=== PATIENT | male | born 1950 | race Caucasian/White ===

== ENCOUNTER 2022-04-15 12:20 | Emergency (ER) | payer MEDICARE, OTHER ==
[2022-04-15 13:52] LABS: BASOPHILS % (AUTO) 0.3 %; HCT - HEMATOCRIT 38.8 % (42.0-52.0); HGB - HEMOGLOBIN 12.5 g/dL (14.0-18.0); LYMPHOCYTES % (AUTO) 2.2 %; MEAN CORPUSCULAR HEMOGLOBIN 30.8 pg (27.0-31.0); MEAN CORPUSCULAR HGB CONC 32.2 g/dL (32.0-36.0); MEAN CORPUSCULAR VOLUME 95.6 fL (80.0-94.0); MEAN PLATELET VOLUME 10.4 fL (7.4-11.4); MONOCYTES % (AUTO) 5.9 %; NEUTROPHILS % (AUTO) 90.3 %; PLT - PLATELET COUNT 235 10^3/uL (130-450); RED BLOOD COUNT 4.06 10^6/uL (4.70-6.10); RED CELL DISTRIBUTION WIDTH 13.2 % (12.0-15.0); WHITE BLOOD COUNT 21.3 x10^3/uL (4.8-10.8)
[2022-04-15 13:54] LABS: ABNORMAL LYMPHS % (MANUAL) 0 %
[2022-04-15 14:03] LABS: ALBUMIN 3.5 g/dL (3.2-5.5); CALCIUM 9.7 mg/dL (8.5-10.3); CREATININE 2.9 mg/dL (0.6-1.2); POTASSIUM 4.6 mmol/L (3.5-5.0); TOTAL PROTEIN 6.9 g/dL (6.7-8.2)
[2022-04-15 14:11] LABS: BAND NEUTROPHILS % (MANUAL) 18 %; DIFFERENTIAL COMMENT MANUAL DIFFERENTIAL; EOSINOPHILS # (MANUAL) 0.2 10^3/uL (0-0.7); LYMPHOCYTES # (MANUAL) 1.3 10^3/uL (1.5-3.5); LYMPHOCYTES % (MANUAL) 6 %; MONOCYTES # (MANUAL) 1.7 10^3/uL (0.0-1.0); NEUTROPHILS # (MANUAL) 18.1 10^3/uL (1.5-6.6); PLATELET ESTIMATE, MANUAL NORMAL (130-450,000) (NORMAL); PLATELET MORPHOLOGY NORMAL APPEARANCE (NORMAL); RBC MORPHOLOGY (MULTIPLE) NORMAL APPEARANCE (NORMAL)
--- NOTE | 2022-04-15 14:14 | ED Physician Documentation ---
PD HPI DYSPNEA - Stated complaint Stated Complaint: LEFT ARM/FINGER INF/PX - Chief complaint Chief Complaint: Ext Problem - History obtained from History obtained from: Patient PD PAST MEDICAL HISTORY - Allergies Allergies/Adverse Reactions: Allergies Allergy/AdvReac Type Severity Reaction Status Date / Time No Known Drug Allergies Allergy Verified 04/15/22 12:56 Results - Vitals Vitals: Vital Signs - 24 hr 04/15/22 12:47 Temperature 36.7 C Heart Rate 58 L Respiratory 16 Rate Blood Pressure 98/72 O2 Saturation 91 L Oxygen O2 Source Room air - Labs Labs: Laboratory Tests 04/15/22 04/15/22 13:44 13:44 WBC 21.3 H RBC 4.06 L Hgb 12.5 L Hct 38.8 L MCV 95.6 H MCH 30.8 MCHC 32.2 RDW 13.2 Plt Count 235 MPV 10.4 Neut # (Auto) Not Reportable Lymph # (Auto) Not Reportable [place] # (Auto) Not Reportable Eos # (Auto) Not Reportable Baso # (Auto) Not Reportable Absolute Nucleated RBC Not Reportable Total Counted 100 Band Neuts % (Manual) 18 H Abnorm Lymph % (Manual) 0 Nucleated RBC % Not Reportable Neutrophils # (Manual) 18.1 H Lymphocytes # (Manual) 1.3 L Monocytes # (Manual) 1.7 H Eosinophils # (Manual) 0.2 Basophils # (Manual) 0.0 Differential Comment MANUAL DIFFERENTIAL Platelet Estimate NORMAL (130-450,000) Platelet Morphology NORMAL APPEARANCE RBC Morph Micro Appear NORMAL APPEARANCE Sodium 135 Potassium 4.6 Chloride 101 Carbon Dioxide 18 L Anion Gap 16.0 H BUN 40 H Creatinine 2.9 H Estimated GFR (MDRD) 22 L Glucose 147 H Calcium 9.7 Total Bilirubin 1.0 AST 37 ALT 22 Alkaline Phosphatase 56 Total Protein 6.9 Albumin 3.5 Globulin 3.4 Albumin/Globulin Ratio 1.0 Lipase 34
[2022-04-15] MEDS ORDERED: SODIUM CHLORIDE 0.9% 2,422.17 ML IV STA (14:18)
--- NOTE | 2022-04-15 14:19 | XRAY Report ---
PROCEDURE: Chest 1 View X-Ray INDICATIONS: dyspnea TECHNIQUE: One view of the chest was acquired. COMPARISON: None. FINDINGS: Surgical changes and devices: None. Lungs and pleura: No pleural effusions or pneumothorax. Lungs are clear. Mediastinum: Mediastinal contours appear normal. Heart size is normal. Bones and chest wall: No suspicious bony lesions. Overlying soft tissues appear unremarkable. IMPRESSION: No acute cardiopulmonary pathology. Reviewed by: Chino Crain MD on 04/15/2022 2:18 PM PST Approved by: Chino Crain MD on 04/15/2022 2:18 PM PST Station ID: [id number]
[2022-04-15] MEDS ORDERED: ceFAZolin 2 GM in SODIUM CHLORIDE 0.9% 100ML 100 ML IV STA (14:21)
--- NOTE | 2022-04-15 14:24 | ED Physician Documentation ---
History of Present Illness - Stated complaint Stated Complaint: LEFT ARM/FINGER INF/PX - Chief complaint Chief Complaint: Ext Problem - Additonal information Additional information: 71-year-old male presents to The emergency department for evaluation of concerns of infection in the left arm. Reports that 48 hours ago he noticed a redness in his left upper inner arm. Over the last 24 hours is gotten progressively more erythematous and swollen now his left finger hurts. Now a centralized area has become ecchymotic. He is also been having some fevers, chills and shortness of air. Reports extensive n/v/d last night. none today Past medical history is most significant for hypertension and atrial fibrillation. He is anticoagulated on Eliquis. He denies any history of coronary artery disease or strokes. This gentleman is new to [facility] recently moving here from [place] (Moved this weekend) Past medical history: Hypertension, atrial fibrillation Medications: Lisinopril 10 mg daily, atorvastatin 20 mg daily, Eliquis 5 mg twice daily, metoprolol 100 mg daily. Review of Systems Constitutional: reports: Fever, Chills, Myalgias Throat: reports: Reviewed and negative Cardiac: reports: Reviewed and negative Respiratory: reports: Dyspnea. denies: Cough GI: reports: Nausea, Vomiting, Diarrhea Skin: reports: Lesions Musculoskeletal: denies: Neck pain, Back pain Neurologic: reports: Reviewed and negative PD PAST MEDICAL HISTORY - Allergies Allergies/Adverse Reactions: Allergies Allergy/AdvReac Type Severity Reaction Status Date / Time No Known Drug Allergies Allergy Verified 04/15/22 12:56 PD ED PE NORMAL - General General: Alert and oriented X 3, No acute distress - Neck Neck: Supple, no meningeal sign, No adenopathy - Cardiac Cardiac: No murmur, Other (Faint 1+ pulses in all 4 extremities. Sluggish cap refill). No: RRR (Rate controlled irregularly irregular) - Respiratory Respiratory: No respiratory distress, Clear bilaterally - Abdomen Abdomen: Normal bowel sounds, Soft - Back Back: No CVA TTP, No spinal TTP - Derm Derm: Normal color, No rash - Extremities Extremities: No deformity, Normal ROM s pain. No: No tenderness to palpate (Left upper extremity with an area of induration and ecchymosis inner arm with surrounding erythema measuring approximately 5 x 8 cm.) - Neuro Neuro: Alert and oriented X 3, head of conservation 2-12 intact Eye Opening: Spontaneous Motor: Obeys Commands Verbal: Oriented GCS Score: 15 Results - Vitals Vitals: Vital Signs - 24 hr 04/15/22 04/15/22 04/15/22 12:47 16:00 16:37 Temperature 36.7 C Heart Rate 58 L 90 84 Respiratory 16 20 21 Rate Blood Pressure 98/72 80/64 L 77/65 L O2 Saturation 91 L 97 99 04/15/22 04/15/22 17:19 18:00 Temperature Heart Rate 63 89 Respiratory 20 18 Rate Blood Pressure 86/64 L 84/69 L O2 Saturation 96 97 Oxygen O2 Source Room air - EKG (time done) 1427 Rate: Rate (enter#) (95) Rhythm: Atrial fibrillation Roy: Other QRS: Poor R wave progression, Low voltage Ischemia: Q waves (inferior and anterior leads) Compare to prior EKG: Old EKG unavailable Computer interpretation: Agree with computer - Labs Labs: Laboratory Tests 04/15/22 04/15/22 04/15/22 13:44 13:44 13:44 WBC 21.3 H RBC 4.06 L Hgb 12.5 L Hct 38.8 L MCV 95.6 H MCH 30.8 MCHC 32.2 RDW 13.2 Plt Count 235 MPV 10.4 Neut # (Auto) Not Reportable Lymph # (Auto) Not Reportable [place] # (Auto) Not Reportable Eos # (Auto) Not Reportable Baso # (Auto) Not Reportable Absolute Nucleated RBC Not Reportable Total Counted 100 Band Neuts % (Manual) 18 H Abnorm Lymph % (Manual) 0 Nucleated RBC % Not Reportable Neutrophils # (Manual) 18.1 H Lymphocytes # (Manual) 1.3 L Monocytes # (Manual) 1.7 H Eosinophils # (Manual) 0.2 Basophils # (Manual) 0.0 Differential Comment MANUAL DIFFERENTIAL Platelet Estimate NORMAL (130-450,000) Platelet Morphology NORMAL APPEARANCE RBC Morph Micro Appear NORMAL APPEARANCE PT INR Sodium 135 Potassium 4.6 Chloride 101 Carbon Dioxide 18 L Anion Gap 16.0 H BUN 40 H Creatinine 2.9 H Estimated GFR (MDRD) 22 L Glucose 147 H Lactic Acid Calcium 9.7 Total Bilirubin 1.0 AST 37 ALT 22 Alkaline Phosphatase 56 B-Natriuretic Peptide 1533 H Total Protein 6.9 Albumin 3.5 Globulin 3.4 Albumin/Globulin Ratio 1.0 Lipase 34 Procalcitonin Nasal Adenovirus (PCR) Nasal B. parapertussis DNA (PCR) Nasal Coronavir 229E PCR Nasal Coronavir HKU1 PCR Nasal Coronavir NL63 PCR Nasal Coronavir OC43 PCR Nasal Enterovir/Rhinovir PCR Nasal Influenza A H3 PCR Nasal Influenza B PCR Nasal Parainfluen 1 PCR Nasal Parainfluen 2 PCR Nasal Parainfluen 3 PCR Nasal Parainfluen 4 PCR Nasal RSV (PCR) Nasal B.pertussis DNA PCR Nasal C.pneumoniae (PCR) Russ Human Metapneumo PCR Nasal M.pneumoniae (PCR) Nasal SARS-CoV-2 (PCR) 04/15/22 04/15/22 04/15/22 13:44 14:27 15:00 WBC RBC Hgb Hct MCV MCH MCHC RDW Plt Count MPV Neut # (Auto) Lymph # (Auto) [place] # (Auto) Eos # (Auto) Baso # (Auto) Absolute Nucleated RBC Total Counted Band Neuts % (Manual) Abnorm Lymph % (Manual) Nucleated RBC % Neutrophils # (Manual) Lymphocytes # (Manual) Monocytes # (Manual) Eosinophils # (Manual) Basophils # (Manual) Differential Comment Platelet Estimate Platelet Morphology RBC Morph Micro Appear PT INR Sodium 136 Potassium 4.8 Chloride 106 Carbon Dioxide 18 L Anion Gap 12.0 BUN 40 H Creatinine 2.8 H Estimated GFR (MDRD) 23 L Glucose 146 H Lactic Acid 7.7 H* Calcium 8.3 L Total Bilirubin 0.7 AST 31 ALT 20 Alkaline Phosphatase 40 L B-Natriuretic Peptide Total Protein 5.2 L Albumin 2.8 L Globulin 2.4 Albumin/Globulin Ratio 1.2 Lipase Procalcitonin 14.42 H* Nasal Adenovirus (PCR) Nasal B. parapertussis DNA (PCR) Nasal Coronavir 229E PCR Nasal Coronavir HKU1 PCR Nasal Coronavir NL63 PCR Nasal Coronavir OC43 PCR Nasal Enterovir/Rhinovir PCR Nasal Influenza A H3 PCR Nasal Influenza B PCR Nasal Parainfluen 1 PCR Nasal Parainfluen 2 PCR Nasal Parainfluen 3 PCR Nasal Parainfluen 4 PCR Nasal RSV (PCR) Nasal B.pertussis DNA PCR Nasal C.pneumoniae (PCR) Russ Human Metapneumo PCR Nasal M.pneumoniae (PCR) Nasal SARS-CoV-2 (PCR) 04/15/22 04/15/22 04/15/22 15:00 16:28 16:35 WBC RBC Hgb Hct MCV MCH MCHC RDW Plt Count MPV Neut # (Auto) Lymph # (Auto) [place] # (Auto) Eos # (Auto) Baso # (Auto) Absolute Nucleated RBC Total Counted Band Neuts % (Manual) Abnorm Lymph % (Manual) Nucleated RBC % Neutrophils # (Manual) Lymphocytes # (Manual) Monocytes # (Manual) Eosinophils # (Manual) Basophils # (Manual) Differential Comment Platelet Estimate Platelet Morphology RBC Morph Micro Appear PT 20.2 H INR 1.9 H Sodium 135 Potassium 4.9 Chloride 106 Carbon Dioxide 17 L Anion Gap 12.0 BUN 38 H Creatinine 2.6 H Estimated GFR (MDRD) 25 L Glucose 133 H Lactic Acid Calcium 7.9 L Total Bilirubin AST ALT Alkaline Phosphatase B-Natriuretic Peptide Total Protein Albumin Globulin Albumin/Globulin Ratio Lipase Procalcitonin Nasal Adenovirus (PCR) NOT DETECTED Nasal B. parapertussis DNA (PCR) NOT DETECTED Nasal Coronavir 229E PCR NOT DETECTED Nasal Coronavir HKU1 PCR NOT DETECTED Nasal Coronavir NL63 PCR NOT DETECTED Nasal Coronavir OC43 PCR NOT DETECTED Nasal Enterovir/Rhinovir PCR DETECTED A Nasal Influenza A H3 PCR DETECTED A Nasal Influenza B PCR NOT DETECTED Nasal Parainfluen 1 PCR NOT DETECTED Nasal Parainfluen 2 PCR NOT DETECTED Nasal Parainfluen 3 PCR NOT DETECTED Nasal Parainfluen 4 PCR NOT DETECTED Nasal RSV (PCR) NOT DETECTED Nasal B.pertussis DNA PCR NOT DETECTED Nasal C.pneumoniae (PCR) NOT DETECTED Russ Human Metapneumo PCR NOT DETECTED Nasal M.pneumoniae (PCR) NOT DETECTED Nasal SARS-CoV-2 (PCR) NOT DETECTED 04/15/22 18:01 WBC RBC Hgb Hct MCV MCH MCHC RDW Plt Count MPV Neut # (Auto) Lymph # (Auto) [place] # (Auto) Eos # (Auto) Baso # (Auto) Absolute Nucleated RBC Total Counted Band Neuts % (Manual) Abnorm Lymph % (Manual) Nucleated RBC % Neutrophils # (Manual) Lymphocytes # (Manual) Monocytes # (Manual) Eosinophils # (Manual) Basophils # (Manual) Differential Comment Platelet Estimate Platelet Morphology RBC Morph Micro Appear PT INR Sodium Potassium Chloride Carbon Dioxide Anion Gap BUN Creatinine Estimated GFR (MDRD) Glucose Lactic Acid 5.4 H* Calcium Total Bilirubin AST ALT Alkaline Phosphatase B-Natriuretic Peptide Total Protein Albumin Globulin Albumin/Globulin Ratio Lipase Procalcitonin Nasal Adenovirus (PCR) Nasal B. parapertussis DNA (PCR) Nasal Coronavir 229E PCR Nasal Coronavir HKU1 PCR Nasal Coronavir NL63 PCR Nasal Coronavir OC43 PCR Nasal Enterovir/Rhinovir PCR Nasal Influenza A H3 PCR Nasal Influenza B PCR Nasal Parainfluen 1 PCR Nasal Parainfluen 2 PCR Nasal Parainfluen 3 PCR Nasal Parainfluen 4 PCR Nasal RSV (PCR) Nasal B.pertussis DNA PCR Nasal C.pneumoniae (PCR) Russ Human Metapneumo PCR Nasal M.pneumoniae (PCR) Nasal SARS-CoV-2 (PCR) - Rads (name of study) cxr Radiology: Final report received (No acute cardiopulmonary abnormality) Left upper arm Radiology: Final report received (Findings a suggestive of cellulitis and fasciitis. Specifically findings of cellulitis and skin thickening subcutaneous edema in the anterior upper arm. Inflammatory changes extend deep to involve the anterior fascial boundary. Few tiny foci of air are more likely related to vascular access.) Procedures - Central Line - Major Central Line Preparation: Consent Obtained, Time out completed, Ultrasound used Central line location: Right IJ Central line type: Triple lumen Central line aftercare: Chlorhexidine disc placed, Secured, Placement confirmed, No complications, Pt tolerated well PD MEDICAL DECISION MAKING - ED course Complexity details: reviewed results, re-evaluated patient, considered differential, d/w patient, d/w family ED course: 71-year-old male who carries a history of hypertension and atrial fibrillation anticoagulated on Eliquis presents to the emergency department for evaluation of pain in the left upper arm that began 48 hours ago. Initially began as a small area of erythema but over the last 24 hours has become progressively more erythematous and now has a centralized area of ecchymosis. On presentation to the emergency department he did present in septic shock as evidenced by hypotension, elevated lactate of 7.7 He however has been mentating normally and maintaining his airway. We initiated volume resuscitation with 3 L of crystalloid. Shortly thereafter I did place a central line as he was nonresponsive to fluids. Once a central line was cleared he was initiated on Levophed for a map goal > 60. We have also started him on vasopressin at a fixed rate of 0.4u/min. He does have multiorgan failure as evidenced by acute kidney injury with a BUN of 40 and a creatinine of 2.8. Repeat BMP did reveal a reduced lactate to 5.7 following initial volume resuscitation A repeat of his serum chemistry reveals that with initiation of fluids and pressors his lactate has decreased to 5.7. My suspicion for necrotizing fasciitis indicated the need for broad-spectrum antibiotics. Initially he was administered Ancef, vancomycin as well as clindamycin. Once he was more hemodynamically stable he was sent to the CT scanner where a CT scan was done and it shows cellulitis and fasciitis. There are some small pockets of air that the radiologist attributes to peripheral IV insertion however with the severity of his illness I am much more concerned that he has in fact a necrotizing infection. 1900: I Have spoken with Dr. Hess a general surgeon at [facility] who agrees to accept the patient in transfer. This critically ill patient is going to be transferred via [facility]. The admitting physician at [facility] requested we administer Levaquin as well as 4,000,000 units of penicillin. Unfortunately penicillin is not available at this pharmacy therefore I substituted with Zosyn and Levaquin. Patient's is at the bedside and aware of the need to transport for further evaluation of his critical status. Appropriate [employer] paperwork has been completed. - Critical Care Time(min): 60 Time Includes: Direct patient care, Reassess patient Data interpretation: Labs, CXR, See progress note - Sepsis Event Sepsis Onset Date: 04/15/22 Sepsis Onset Time: 14:30 Current Stage of Sepsis: Septic shock Initial Hypotension: SBP less than 90 mmHg Persistent Hypotension: SBP drop more than 40 mmHg from baseline Possible source of Sepsis: Skin/soft tissue Mental/Cognitive Status: Alert/Oriented X3 Capillary refill: Greater than 2 seconds Peripheral Pulse Strength: 1+ Faint Peripheral Pulse Location: Pedal Bedside ultrasound performed: No Sepsis Comment: 2 g of Ancef as well as 1-1/2 g of Vanco ordered For suspected left arm cellulitis. Hypotensive. Leukocytosis with bandemia. Departure - Departure Disposition: 02 Transfer Acute Care Hosp Clinical Impression: Septic shock, Necrotizing fasciitis Condition: Critical
[2022-04-15] MEDS ORDERED: LACTATED RINGERS 1,000 ML IV STA (14:48)
[2022-04-15] MEDS ORDERED: VANCOMYCIN INJ 2 GM in SODIUM CHLORIDE 0.9% 500 ML IV SCH (15:00)
[2022-04-15] MEDS ORDERED: VANCOMYCIN INJ 2 GM in SODIUM CHLORIDE 0.9% 250 ML IV SCH (15:00)
[2022-04-15] MEDS ORDERED: VANCOMYCIN INJ 2 GM in SODIUM CHLORIDE 0.9% 500 ML IV ONE (15:03)
[2022-04-15 15:07] LABS: LACTIC ACID, VENOUS 7.7 mmol/L (0.5-2.2)
[2022-04-15 15:13] LABS: INR 1.9 (0.8-1.2); PT - PROTHROMBIN TIME 20.2 secs (9.9-12.6)
[2022-04-15 15:17] LABS: ALBUMIN 2.8 g/dL (3.2-5.5); ALBUMIN/GLOBULIN RATIO 1.2 (1.0-2.2); BILIRUBIN,TOTAL 0.7 mg/dL (0.2-1.0); CALCIUM 8.3 mg/dL (8.5-10.3); CREATININE 2.8 mg/dL (0.6-1.2); POTASSIUM 4.8 mmol/L (3.5-5.0); TOTAL PROTEIN 5.2 g/dL (6.7-8.2)
[2022-04-15] MEDS ORDERED: NOREPINEPHRINE/D5W 8 MG/250 ML BAG IV STA (15:51)
[2022-04-15] MEDS ORDERED: CLINDAMYCIN 600 MG/50 ML 50 ML IV ONE ×3 (16:00→16:30)
--- NOTE | 2022-04-15 16:14 | XRAY Report ---
PROCEDURE: Chest for Line Placement INDICATIONS: RIJ CVC TECHNIQUE: One view of the chest was acquired. COMPARISON: Same day at 1:35 PM. FINDINGS: Surgical changes and devices: Right internal jugular central venous catheter tip is in SVC. Lungs and pleura: No pleural effusions or pneumothorax. Lungs are clear. Mediastinum: Mediastinal contours appear normal. Heart size is normal. Bones and chest wall: No suspicious bony lesions. Overlying soft tissues appear unremarkable. IMPRESSION: Right internal jugular central venous catheter tip is in SVC. No focal infiltrate, pleural effusion o r pneumothorax. Reviewed by: Chino Crain MD on 04/15/2022 4:12 PM PST Approved by: Chino Crain MD on 04/15/2022 4:12 PM PST Station ID: [id number]
[2022-04-15 16:39] LABS: CALCIUM 7.9 mg/dL (8.5-10.3); CREATININE 2.6 mg/dL (0.6-1.2); POTASSIUM 4.9 mmol/L (3.5-5.0)
[2022-04-15] MEDS ORDERED: VASOPRESSIN 20 UNIT in DEXTROSE 5% 99 ML IV STA (17:10)
[2022-04-15] MEDS ORDERED: CALCIUM CHLORIDE ABBOJECT 1000MG/10 ML SYRINGE IVP STA (17:41)
--- NOTE | 2022-04-15 17:46 | CT Report ---
PROCEDURE: UPPER EXTREMITY WO - LT INDICATIONS: ? nec fas TECHNIQUE: Noncontrast 2 mm axial sections were acquired through the elbow joint, with coronal and sagittal refo rmats. For radiation dose reduction, the following was used: automated exposure control, adjustment of mA and/or kV according to patient size. COMPARISON: None. FINDINGS: These images demonstrate skin thickening and subcutaneous edema in the anterior soft tissues of the u pper arm. Inflammatory changes extend deep to the anterior fascial boundary. Additional foci of air a re seen in other locations spatially remote inflammatory changes, suggesting that these likely repres ent small locules of air related to vascular access attempts. No suspicious lytic or blastic osseous lesion. No significant soft tissue abnormality in the forearm identified. IMPRESSION: Findings which are suggestive of cellulitis and fasciitis. Specifically, there are findings of cellul itis with skin thickening and subcutaneous edema in the anterior upper arm. Inflammatory changes exte nd deep to involve the anterior fascial boundary. A few tiny foci of air in the soft tissues are more likely related to vascular access attempts. Reviewed by: Adin Jain MD on 04/15/2022 5:45 PM PST Approved by: Adin Jain MD on 04/15/2022 5:45 PM PST Station ID: [id number]
[2022-04-15] MEDS ORDERED: ONDANSETRON 4 MG/2 ML VIAL IVP STA (18:01)
[2022-04-15 18:23] LABS: B. PARAPERTUSSIS- RESP PCR PAN NOT DETECTED; B. PERTUSSIS- RESP PCR PANEL NOT DETECTED; C. PNEUMONIAE- RESP PCR PANEL NOT DETECTED; CORONAVIRUS 229E-RESP PCR NOT DETECTED; CORONAVIRUS HKU1-RESP PCR NOT DETECTED; CORONAVIRUS NL63-RESP PCR NOT DETECTED; CORONAVIRUS OC43-RESP PCR NOT DETECTED; HUMAN METAPNEUMOVIRUS NOT DETECTED; INFLUENZA A H3- RESP PCR PANEL DETECTED; INFLUENZA B - RESP PCR PANEL NOT DETECTED; M. PNEUMONIAE- RESP PCR PANEL NOT DETECTED; PARAINFLUENZA VIRUS 1 NOT DETECTED; PARAINFLUENZA VIRUS 2 NOT DETECTED; PARAINFLUENZA VIRUS 3 NOT DETECTED; PARAINFLUENZA VIRUS 4 NOT DETECTED; RHINOVIRUS/ENTEROVIRUS DETECTED; RSV- RESP PCR PANEL NOT DETECTED; SARS-CoV-2 -RESP PCR PANEL NOT DETECTED
[2022-04-15 18:26] LABS: LACTIC ACID, VENOUS 5.4 mmol/L (0.5-2.2)
[2022-04-15] MEDS ORDERED: HYDROmorphone 1 MG/ML CARPUJECT IVP STA (18:32)
[2022-04-15] MEDS ORDERED: fentaNYL 100 MCG/2 ML VIAL IVP STA (18:33)
[2022-04-15] MEDS ORDERED: levoFLOXacin 750 MG/150 ML 750 MG/150 ML BAG IV STA (19:01)
[2022-04-15] MEDS ORDERED: PIPERACILLIN/TAZOBACTAM 3.375 GM in SODIUM CHLORIDE 0.9% MINIBAG 100 ML IV STA (19:02)
[2022-04-15 19:44] VITALS: BP 78/66
[2022-04-17] MEDS ORDERED: VANCOMYCIN INJ 1.25 GM in SODIUM CHLORIDE 0.9% 500 ML IV SCH (16:00)
== END 2022-04-15 19:45 | disposition short-term general hospital (02) ==
LOC: ED 12:20
DX: A41.9 Sepsis, unspecified organism (principal); R65.21 Severe sepsis with septic shock; M72.6 Necrotizing fasciitis; I95.9 Hypotension, unspecified; I48.91 Unspecified atrial fibrillation; Z79.01 Long term (current) use of anticoagulants; I10 Essential (primary) hypertension; Z20.822 Contact with and (suspected) exposure to COVID-19
CPT/HCPCS: 36415; 36556; 71045; 73200; 80048; 80053; 83605; 83690; 83880; 84145; 85025; 85610; 87040; 87150; 87181; 87633; 93005; 96365; 96366; 96368; 96375; 99291; J3370; J7120